=== PATIENT | female | born 1935 | race Caucasian/White ===

== ENCOUNTER 2020-05-19 06:44 | Day surgery (SDC) | payer MEDICARE, BC ==
[~2020-05-19] VITALS: Ht 152.4 cm; Wt 71.8 kg
[~2020-05-19 06:44] MED LIST: AMLODIPINE BESY10 MG PO; ATENOLOL25 MG PO; ATORVASTATIN CA20 MG PO; CENTRAVITES 501 EACH PO; DORZOLAMIDE 2%10 ML OP; HYDROCHLOROTH12.5 MG PO; IRON18 MG PO; POTASSIUM CHLO10 MEQ PO; STOOL SOFTENER100 MG PO; TRAVATAN Z5 ML OPTH
[2020-05-19] MEDS ORDERED: ALLOPURINOL100 MG PO (07:20)
--- NOTE | 2020-05-19 10:40 | NUR ---
05/19/20 1040 Inga Rahman 0964 PT ARRIVED IN PACU AWAKE WITH NO C/O'S. ABD SOFT AND PASSING FLATUS. 0945 DR AT BEDSIDE VISITING WITH PT. ALL QUESTIONS ANSWERED. 1000 SITTING AT BEDSIDE GETTING DRESSED WITH STAND BY ASSIST. 1010 DC INSTRUCTIONS GIVEN. PT VOICED QUESTIONS ABOUT GETTING A NEW PROSTHETIC BRA. APPT SET UP FOR NEXT MONDAY AT 9AM WITH BREAST CANCER SPECIALIST TO GET RE FITTED. 1020 LEFT VIA W/C. DC INSTRUCTIONS GIVEN TO DAUGHTER AND FOLLOW UP APPT ON MAY 26 AT 9AM.
--- NOTE | 2020-05-20 13:07 | OR ---
[facility] [address] [place], [place] [address] Signed DATE OF OPERATION: 05/19/2020 SURGEON: Graham Flores MD PREOPERATIVE DIAGNOSES: 1. Heme-positive stool. 2. Distant history of partial cecectomy. POSTOPERATIVE DIAGNOSES: 1. Extensive diverticulosis of sigmoid and left colon. 2. Mild cecitis. 3. Rectal hemangiomas. 4. Internal hemorrhoidal changes. 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 ANESTHESIA: Intravenous sedation, fentanyl 100 mcg and Versed 6 mg. INDICATION: This 85-year-old white woman is a patient of LIZZIE Nair. She was noted to have heme-positive stool on fecal occult blood testing. She has had no gross blood per rectum. She does have history of partial cecectomy with appendectomy and drainage of retroperitoneal abscess in 2001. She has also undergone a nephrectomy in the past. She has had heme-positive stool noted on fecal occult blood testing, but no sign of gross rectal bleeding or hematemesis. She understands the risks of bleeding, infection, and perforation related to colonoscopy and wished to proceed. FINDINGS: The prep was reasonably good. Complete colonoscopy was undertaken to the cecum without question. There was no sign of neoplasm. She did have some hemangiomas of the rectum, which were nonbleeding and some internal hemorrhoids. Extensive diverticulosis was noted of the sigmoid and left colon. Mild inflammation of the cecum was noted, likely related to insufflation rather than a primary cecitis proper. DESCRIPTION OF PROCEDURE: The patient was brought to the surgical endoscopy suite, placed in lateral decubitus position, given intravenous sedation to the point of slurred speech and nystagmus with Electronically Signed By: GRAHAM FLORES MD 05/20/20 1307 PATIENT NAME: HAKEEM BELTRAN OPERATIVE REPORT DATE OF : 35 REPORT #: [id number] PHYSICIAN: GRAHAM FLORES MD PCP: DUNCAN JONES REPORT IS CONFIDENTIAL AND NOT TO BE RELEASED WITHOUT AUTHORIZATION [facility] [address] [place], [place] [address] Signed full cardiopulmonary monitoring. Digital rectal examination was normal. The Olympus video colonoscope was passed in the rectum and manipulated throughout the colon noting extensive diverticular changes of sigmoid and left colon. The scope was ultimately passed to the cecum. The small submucosal hemorrhages were noted typical of insufflation rather than actual colitis. However, biopsies were obtained anyway. The scope was withdrawn. Examination throughout showed no sign of abnormality until the left colon and sigmoid where numerous diverticula were once again noted. Withdrawal of the rectum showed some submucosal hemangioma type lesions. One was representatively excised including mucosa and submucosa and bleeding controlled with electrocautery. Retroflexed view was undertaken confirming internal hemorrhoids. The scope was removed. The patient was taken to the recovery room in good condition. Findings could account for occult blood per rectum, but none are worrisome or malignant in any way. PLAN: We would recommend fiber supplement such as Citrucel or Metamucil one scoop daily. She will return to the ongoing care of Duncan Jones. MD MARGOT Costa/MODL /[id number] cc: LIZZIE Nair Copies: DUNCAN JONES ~ Electronically Signed By: GRAHAM FLORES MD 05/20/20 1307 PATIENT NAME: HAKEEM BELTRAN OPERATIVE REPORT DATE OF : 35 REPORT #: [id number] PHYSICIAN: GRAHAM FLORES MD PCP: DUNCAN JONES REPORT IS CONFIDENTIAL AND NOT TO BE RELEASED WITHOUT AUTHORIZATION
== END 2020-05-19 10:20 | disposition home or self-care (01) ==
LOC: DS 06:44 → OPS 06:44 → DS 08:00 → OPS 10:20 → DS 13:00
PROVIDERS: ATTEND Surgery
PROC: 0DBP8ZX Excision of Rectum, Via Natural or Artificial Opening Endoscopic, Diagnostic (ICD-10-PCS; 2020-05-19)
PROC: 0DBH8ZX Excision of Cecum, Via Natural or Artificial Opening Endoscopic, Diagnostic (ICD-10-PCS; principal; 2020-05-19 08:00)
DX: K62.1 Rectal polyp (principal); K57.30 Diverticulosis of large intestine without perforation or abscess without bleeding; K52.9 Noninfective gastroenteritis and colitis, unspecified; D18.09 Hemangioma of other sites; I10 Essential (primary) hypertension; K64.8 Other hemorrhoids; Z98.890 Other specified postprocedural states; Z95.0 Presence of cardiac pacemaker
CPT/HCPCS: 88305; 99153; G0500; J2250; J3010; J7121

== ENCOUNTER 2021-05-02 08:17 | Emergency (ER) | payer MEDICARE, BC ==
[~2021-05-02] VITALS: Ht 152.4 cm; Wt 75.8 kg
[~2021-05-02 08:17] MED LIST changes: +ALLOPURINOL100 MG PO
[2021-05-02] MEDS ORDERED: ALPHAGAN P5 M1 OPTH (08:41)
== END 2021-05-02 10:15 | disposition home or self-care (01) ==
LOC: ED 08:17
DX: R31.9 Hematuria, unspecified (principal); N32.9 Bladder disorder, unspecified; Z85.3 Personal history of malignant neoplasm of breast; Z79.899 Other long term (current) drug therapy
CPT/HCPCS: 74176; 80048; 81001; 85025; 99284-25; J7030

== ENCOUNTER 2021-05-07 09:11 | Emergency (ER) | payer MEDICARE, BC ==
[~2021-05-07] VITALS: Ht 152.4 cm; Wt 75.8 kg
[~2021-05-07 09:11] MED LIST changes: +ALPHAGAN P5 M1 OPTH
--- OUTSIDE RECORDS SUMMARY | 2021-05-07 09:18 | XMS ---
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 Denia has no Care Guidelines for this patient. Breana VISIT COUNT (12 MO.) 2 [facility] [place] [facility]. TOTAL 2 NOTE: Visits indicate total known visits. ED/UCC VISIT TRACKING (12 MO.) 05/07/2021 09:[address] [facility] [place] TYPE: Emergency COMPLAINT: - POSS UTI 05/02/2021 08:17 [facility] [place] TYPE: Emergency COMPLAINT: - BLOOD IN URINE DIAGNOSES: - Bladder disorder, unspecified - Personal history of malignant neoplasm of breast - [facility] drug therapy - Hematuria, unspecified INPATIENT VISIT TRACKING (12 MO.) No inpatient visits to display in this time frame [email or web address]
== END 2021-05-07 16:39 | disposition home or self-care (01) ==
LOC: ED 09:11
DX: N32.9 Bladder disorder, unspecified (principal); D64.9 Anemia, unspecified; R31.9 Hematuria, unspecified; Z85.3 Personal history of malignant neoplasm of breast; Z79.899 Other long term (current) drug therapy
CPT/HCPCS: 36430; 51702; 51798; 76770; 80053; 81001; 85025; 85610; 86850; 86900; 86901; 86922; 99284-25; P9016

== ENCOUNTER 2021-05-13 08:45 | Day surgery (SDC) | payer MEDICARE, BC ==
[~2021-05-13] VITALS: Ht 160 cm; Wt 72.7 kg
--- NOTE | 2021-05-13 09:15 | NUR ---
RT COLLECTED RAPID COVID 19 SWAB USING IN HOUSE LAB WITH NO COMPLICATIONS AT THIS TIME.
[2021-05-13] MEDS ORDERED: AMLODIPINE BESYL5 MG PO (11:15)
--- NOTE | 2021-05-13 16:23 | NUR ---
05/13/21 1623 Skylar Orellana 1614 PT ARRIVED TO PACU ON 6L VIA MASK, VSS. PT WAKES AND IS REORIENTED TO PACU. RESP EVEN AND UNLABORED. 1619 O2 REMOVED AND DENIES PAIN AND NAUSEA. PT RESTING IN BED WITH EYES CLOSED.
--- NOTE | 2021-05-13 17:30 | NUR ---
pt arrives to the floor via stretcher, awake and alert. pt has 2L NC , JANSEN IN PLACE WITH PINK COLORED URINE IN BAG. PT DENIES PAIN AT THIS TIME. PT'S DAUGHTER IN ROOM. PT TO ATTEMPT ORAL INTAKE WITH APPLESAUCE.
--- NOTE | 2021-05-13 18:20 | NUR ---
IN ROOM TO CHECK JANSEN BAG; DARK PINK URINE IN JANSEN TUBING. IRRIGATED WITH STERILE WATER; PT REACTED TO IRRIGATION WITH WINCING; SMALL CLOT FLOWED IMMEDIATELY IN TUBING. WILL CONTINUE TO MONITOR. EXTENSIVE EDUCATION ON JANSEN CARE, S/S OF JANSEN BLOCKAGE, URINE COLOR, ETC.
--- NOTE | 2021-05-13 19:25 | NUR ---
f/c flushed with 10cc sterile water, pink red drainage returned. no cloths. patent. instructions on f/c care and what to observe for given to pt and family, stated understanding. cooperative. meet criteria to be dc'd.
--- NOTE | 2021-05-13 20:18 | NUR ---
PT F/C FLUSHED AGAIN, TOLERATED WELL, DRAINAGE LIGHT PINK COLORED. DC INSTRUCTIONS GIVEN WRITTEN AND VERBALLY. F/C CARE EXPLAINED TO PT AND FAMILY MEMBER. STATED UNDERSTANDING.. SL LFA DC'D, TIP INTACT. PT ALERT/ORIENTED
--- NOTE | 2021-05-13 20:28 | NUR ---
DC HOME VIA W/C TO PRIVATE CAR TO HOME WITH ALL BELONGINGS AND DC WRITTEN INSTRUCTIONS
--- NOTE | 2021-05-16 16:23 | EKG ---
[facility] [address] [facility] [place], [place] [address] Signed Atrial-paced rhythm Incomplete right bundle branch block Abnormal ECG No previous ECGs available Confirmed by HELLEN GUZMAN DO ([id number]) on 05/16/2021 4:23:11 PM Electronically Signed By: HELLEN GUZMAN DO 05/16/21 1623 PATIENT NAME: HAKEEM BELTRAN Electrocardiogram DATE OF : 35 PHYSICIAN: HELLEN GUZMAN DO REPORT #: [id number] REPORT IS CONFIDENTIAL AND NOT TO BE RELEASED WITHOUT AUTHORIZATION
--- NOTE | 2021-05-17 10:13 | OR ---
[facility] [address] [place], [place] [address] Signed DATE OF OPERATION: 05/13/2021 SURGEON: Anabel Cook MD PREOPERATIVE DIAGNOSES: 1. Persisting gross hematuria with acute blood loss anemia. 2. History of bladder cancer. 3. Bladder mass seen on recent CT scan of the abdomen and pelvis. POSTOPERATIVE DIAGNOSES: 1. Persisting gross hematuria with acute blood loss anemia. 2. History of bladder cancer. 3. Bladder mass seen on recent CT scan of the abdomen and pelvis. 4. Diffuse bladder tumor recurrence, noted mostly on the dome and posterior naylor of the bladder. NAMES OF PROCEDURES: 1. Diagnostic cystoscopy with blood clot evacuation. 2. Transurethral resection of bladder tumor-large. 3. Insertion of indwelling 20-Bolivian two-way Mak catheter, connected to gravity drainage. ANESTHESIA: General. ESTIMATED BLOOD LOSS: 50 mL. COMPLICATIONS: None. SPECIMENS: 1. Cystic appearing bladder mass located at the dome of the bladder. 2. Multiple papillary bladder masses present mostly on the dome and posterior wall of the bladder. DRAINS: A 20-Bolivian two-way Mak catheter, connected to gravity drainage. 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 Fernandes. Earlier in 2020, she was noted to have blood in her urine and underwent a diagnostic cystoscopy, which revealed a 2.5 cm papillary anterior bladder wall mass. This was resected by Dr. Fernandes. Unfortunately, I do not have the pathology report from that resection. Dr. Fernandes has since retired, and she recently presented to me to establish care with the urologist. Prior to that, she had been experiencing persistent gross hematuria for the past two weeks or so. She had visited the emergency department at least twice and at one point, her hemoglobin made it down to 8.8 and she was transferred 1 unit of packed red blood cells. She has maintained a Mak catheter since that time because she ultimately went into clot retention on May 07, 2021. Her preoperative hemoglobin today is 10.0 and she is otherwise stable. She presents now to undergo cystoscopy with blood clot evacuation and presumed transurethral resection of bladder tumor. OPERATIVE FINDINGS: 1. On cystoscopy, she has one left ureteral orifice that is in the normal anatomic location effluxing clear urine. There is no right ureteral orifice present, which is consistent with her history of nephroureterectomy with cuff excision. 2. Cystoscopy, however, does reveal diffuse involvement of a papillary carpet like in some areas. Bladder mass located all throughout the dome of her bladder and on a very good portion of the posterior wall of the bladder. There are a couple of other small areas on the lateral naylor of the bladder that were also involved. I resected all tumors that were visible to me. During most resections, a good deal of muscularis tissue was also obtained for pathologic analysis. 3. Prior to resection of the bladder tumors, she did have a 4 cm or so very organized blood clot that required transurethral resection into smaller pieces before complete irrigation of the pieces from the patient's bladder. 4. At the end of the procedure, once the areas of tumor resection were cauterized to establish hemostasis, a 20-Bolivian two-way Mak catheter was inserted into the patient's bladder and connected to gravity drainage. DESCRIPTION OF PROCEDURE: After informed consent was obtained, the patient was taken back to the operating room. [facility] table, where general anesthesia was induced. She was then placed in the dorsal lithotomy position and her indwelling Mak catheter was removed. Her genitalia were then prepped and draped in a standard sterile fashion. The patient's urethra was dilated from 20-Bolivian to 30-Bolivian without difficulty. I then inserted the cystoscope using a 26-Bolivian sheath and performed a thorough diagnostic cystoscopy. Please see the above findings. I then switched the visual obturator out for a resectoscope and began to resect the papillary Electronically Signed By: ANABEL COOK MD 05/17/21 1013 PATIENT NAME: CHRISTIN BELTRAN OPERATIVE REPORT DATE OF : 35 REPORT #: [id number] PHYSICIAN: ANABEL COOK MD PCP: DUNCAN CROW REPORT IS CONFIDENTIAL AND NOT TO BE RELEASED WITHOUT AUTHORIZATION [address] [address] Signed tumors present on the posterior wall of the bladder. I took pains to get a proper amount of muscularis tissue with each resection. There was one area in the inferior portion of the posterior wall where a deep resection was made, but there was no evidence of a through and through bladder perforation. I continued resection of the multiple diffuse tumors in the bladder up into the dome of the bladder and close to the anterior wall of the bladder. Total resection time was approximately 2 hours. Once all of the visible bladder tumor was resected and cauterized appropriately with a 24-Bolivian loop, the patient's bladder was irrigated multiple times to be sure all of the tumor was irrigated from her bladder. Of note, there was an unusual appearing bladder mass up on the dome of the bladder that appeared to have papillary tumor present in an inverted fashion. The visible side of the tumor was very smooth. However, when I incised the tumor itself, I could easily see the papillary characteristics of the known bladder tumor. This was sent in a separate specimen for evaluation to be sure this was not a different type of bladder tumor. Once all of the tumor fragments were irrigated from the patient's bladder and cautery had been achieved, the resectoscope was removed. A 20-Bolivian two-way Mak catheter was inserted into the patient's bladder and connected to gravity drainage. I deferred mitomycin therapy today due to the presence of diffuse tumor and the likelihood that mitomycin would be ineffective in making any difference with respect to her prognosis. She will now be transferred to the post anesthesia care unit in stable condition. DISPOSITION: I discussed the details of today's procedure with the patient's daughter and answered all of her questions. I informed her daughter that she has obvious high-grade disease present throughout the majority of her bladder wall. I will be contacting her to discuss the pathology results as soon as they are available to me. Her postoperative hemoglobin is 10.2, so she does qualify for discharge as long as her urine remains clear draining from her Mak catheter. Her diet will be restarted as tolerated and she will be given IV pain control as needed. She will be sent home today with cefdinir 300 mg p.o. b.i.d. for a total of 7 days along with oxycodone 5 mg one tablet p.o. q.6 hours p.r.n. pain, dispense #20 and B and O suppositories as needed for bladder spasms. She has been placed on the schedule to return to clinic on June 03 to undergo a voiding trial and hopefully have her Mak catheter removed. Anabel Cook MD AR/MODL /[id number] Electronically Signed By: ANABEL COOK MD 05/17/21 1013 PATIENT NAME: CHRISTIN BELTRAN OPERATIVE REPORT DATE OF : 35 REPORT #: [id number] PHYSICIAN: ANABEL COOK MD PCP: DUNCAN CROW REPORT IS CONFIDENTIAL AND NOT TO BE RELEASED WITHOUT AUTHORIZATION [facility] [address] [place] [id number] Signed Copies: ~ Electronically Signed By: ANABEL COOK MD 05/17/21 1013 PATIENT NAME: RUBYCHRISTIN OPERATIVE REPORT DATE OF : 35 REPORT #: [id number] PHYSICIAN: ANABEL COOK MD PCP: DUNCAN CROW REPORT IS CONFIDENTIAL AND NOT TO BE RELEASED WITHOUT AUTHORIZATION
--- NOTE | 2021-05-18 10:55 | PATH ---
[facility] [address] [place], [place] [address] Signed SPECIMEN(S): A BLADDER TUMOR SPECIMEN(S): B CYSTIC BLADDER DOME MASS SPECIMEN SOURCE: A. BLADDER TUMOR B. CYSTIC BLADDER DOME MASS CLINICAL HISTORY: Pre: History of bladder CA, kidney CA, history of right nephroureterectomy. Post: TURBT. FINAL PATHOLOGIC DIAGNOSIS: A. Bladder tumor, transurethral resection: - Invasive high-grade papillary urothelial carcinoma. - Tumor extension: Tumor invades lamina propria (subepithelial connective tissue). - Muscularis propria (detrusor muscle): Present and not involved by the carcinoma. - Lymphovascular invasion: Not identified. B. Cystic bladder dome mass, transurethral resection: - Noninvasive high-grade papillary urothelial carcinoma. - Muscularis propria (detrusor muscle): Not identified. - Lymphovascular invasion: Not identified. COMMENT: The carcinoma in both parts A and B demonstrate foci of extracellular mucin. No glandular formation is seen. As part of [facility] Quality Improvement Program, this case was reviewed by another member of our pathology staff. A diagnostic alert was initiated by Dr. Swenson on 05/18/21. NAL:BRP:cml:C1NR MICROSCOPIC EXAMINATION: Histologic sections of all submitted blocks are examined by light microscopy. These findings, together with the gross examination, support the pathologic diagnosis. GROSS DESCRIPTION: Two specimens are received in two containers, labeled "BH." A. The specimen, labeled "BH, A," and designated on the requisition "bladder tumor," is received in formalin and consists of multiple fragments of pink to PATIENT NAME: HAKEEM BELTRAN PATHOLOGY DATE OF : 35 REPORT #: [id number] PHYSICIAN: KEISHA JOHN PCP: DUNCAN CROW REPORT IS CONFIDENTIAL AND NOT TO BE RELEASED WITHOUT AUTHORIZATION [facility] [address] [place], [place] [address] Signed red-brown, friable tissue (4.5 x 4.3 x 0.9 cm in aggregate). The specimen is submitted entirely in cassettes (A1-A3). B. The specimen, labeled "BH, B," and designated on the requisition "cystic bladder dome mass," is received in formalin and consists of the piece of pink to brown-galeas, friable tissue (2.4 x 1.1 x 1.0 cm). The possible resection margin is inked blue. The specimen is serially sectioned to reveal a brown-galeas, soft, friable cut surface. The specimen is submitted entirely in cassette (B1). AC (under the direct supervision of a pathologist) The Gross Description was prepared using a voice recognition system. The report was reviewed for accuracy; however, sound-alike word errors, addition and/or deletions may occur. If there is any question about this report, please contact Client Services. PERFORMING LABORATORY: The technical component was performed by [facility], [address] [place] [id number] ([employer] Animal Damage Control Agent: Emily Lopez MD; CLIA# [id number]). Professional interpretation was performed by [facility], [facility], [address] [address] (CLIA# [id number]). Diagnostician: Jeannette Swenson MD Pathologist Electronically Signed 05/18/2021 Copies: ~ PATIENT NAME: HAKEEM BELTRAN PATHOLOGY DATE OF : 35 REPORT #: [id number] PHYSICIAN: KEISHA JOHN PCP: DUNCAN CROW REPORT IS CONFIDENTIAL AND NOT TO BE RELEASED WITHOUT AUTHORIZATION
== END 2021-05-13 20:34 | disposition home or self-care (01) ==
LOC: DS 08:45 → MS 17:30 → DS 20:34
PROVIDERS: ATTEND Urology
PROC: 0TBB8ZX Excision of Bladder, Via Natural or Artificial Opening Endoscopic, Diagnostic (ICD-10-PCS; principal; 2021-05-13 09:30)
DX: R31.0 Gross hematuria (principal); C67.1 Malignant neoplasm of dome of bladder; C67.4 Malignant neoplasm of posterior wall of bladder; C67.3 Malignant neoplasm of anterior wall of bladder; D62 Acute posthemorrhagic anemia; I13.0 Hypertensive heart and chronic kidney disease with heart failure and stage 1 through stage 4 chronic kidney disease, or unspecified chronic kidney disease; N18.4 Chronic kidney disease, stage 4 (severe); I50.9 Heart failure, unspecified; Z85.528 Personal history of other malignant neoplasm of kidney; Z90.5 Acquired absence of kidney; Z20.822 Contact with and (suspected) exposure to COVID-19
CPT/HCPCS: 00912; 71046; 80053; 85025; 86850; 86900; 86901; 86922; 93005; 93010; C9803; J0690; J1100; J2001; J2405; J2704; J3010; J7121; U0003

== ENCOUNTER 2022-06-06 05:40 | Day surgery (SDC) | payer MEDICARE, BC ==
[~2022-06-06] VITALS: Ht 160 cm; Wt 79.5 kg
[~2022-06-06 05:40] MED LIST changes: +ALA-CORT28.4 GM TOP; +AMLODIPINE BESYL5 MG PO; +LATANOPROST 0.7.5 ML OP
--- NOTE | 2022-06-06 09:27 | NUR ---
06/06/22926 Inga Rahman 0908 PT ARRIVED IN PACU AWAKE WITH NO C/O'S. JANSEN CLAMPED AND TAPED TO ABD AND RECTAL TUBE IN PLACE FROM SURGERY. LAYING SUPINE. 919 REPOSITIONED TO L SIDE PER DR ORDERS. NO C/O'S.
--- NOTE | 2022-06-06 09:55 | NUR ---
PT BACK TO DS ROOM FROM PACU LAYING RT LAT POSITION, PT AWAKE ALERT AND TALKING. REPORTS MILD DISCOMFORT TO BLADDER AREA BUT TOLERABLE. DENIES NAUSEA. WARM BLANKETS AND TITA HUGGER PLACED ON PT.
--- NOTE | 2022-06-06 09:59 | NUR ---
PT HAS RECTAL TUBE IN PLACE DRAINING AND PATENT.
--- NOTE | 2022-06-06 10:03 | NUR ---
1000 PT TURNED ONTO STOMACHE SHE WILL BE IN PRONE POSITION FOR 15 MIN.
--- NOTE | 2022-06-06 10:54 | NUR ---
1020 RECTAL TUBE REMOVED PT TOLERATED WELL. JANSEN CATH REMOVED. 50ML OF FLUID OUT OF JANSEN CATH. PT AMBULALATED TO BATHROOM, RUNNY BOWEL MOVEMENT, SHE WAS NOT ABLE TO VOID. PT CLEANED UP, GOWN AND BED COMPLETED CHANGED. TUCKED HER BACK INTO BED WARM BLANKET PLACED ON PT.
--- NOTE | 2022-06-06 10:57 | NUR ---
1050 PT TAKING SIPS OF WATER AND EATING JELLO TOLERATES WELL.
--- NOTE | 2022-06-06 10:58 | NUR ---
PT DENIES PAIN AND NAUSEA.
--- NOTE | 2022-06-06 10:58 | NUR ---
DEPENDS BRIEFS PLACED ON PT SHE REPORTS BEING MORE COMFORTABLE IN THEM
--- NOTE | 2022-06-06 11:29 | NUR ---
PT AMBULATED TO BATHROOM SHE WAS ABLE TO VOID 100ML OF CLEAR YELLOW URINE LIGHT TINGED WITH BLOOD. PT DENIES PAIN OR NAUSEA. REPORTS READINESS TO GO HOME.
--- NOTE | 2022-06-06 11:44 | NUR ---
DISCHARGE INSTRUCTIONS GIVEN TO PT SHE VOICED UNDERSTANDING. PT DENIES PAIN OR NAUSEA.
--- NOTE | 2022-06-06 12:28 | NUR ---
SENT SIGNED DISCHARGE PAPER HOME WITH PT.
--- NOTE | 2022-06-06 14:28 | NUR ---
PT ALERT, ORIENTED AND SUPPORTED BY HER DAUGHTER. PT SEEMS AT EASE, CONFIDENT OF DR AND STAFF AND CARE SHE IS RECEIVING. PT REQUESTED PRAYER AND WILL FOLLOW
--- NOTE | 2022-06-07 10:46 | NUR ---
LE 1045 CALL BACK COMPLETE. PATIENT VERY PLEASED WITH CARE. STATES PAIN IS UNDER CONTROL AND HAVING NO PROBLEM VOIDING. NO QUESTIONS AT THIS TIME. NO FUTHER NEEDS.
--- NOTE | 2022-06-07 12:28 | OR ---
[facility] [address] [place], [place] [address] Signed DATE OF OPERATION: 06/06/2022 SURGEON: Anabel Cook MD PREOPERATIVE DIAGNOSES: 1. Possible tumor recurrence, a 5 mm area of erythema on the inferior aspect of the posterior bladder wall. 2. 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 POSTOPERATIVE DIAGNOSES: 1. Possible tumor recurrence, a 5 mm area of erythema on the inferior aspect of the posterior bladder wall. 2. 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 NAMES OF PROCEDURES: 1. Diagnostic cystoscopy. 2. Transurethral resection of bladder tumor-small. 3. Intravesical instillation of mitomycin chemotherapy. ANESTHESIA: General. ESTIMATED BLOOD LOSS: Minimal. COMPLICATIONS: None. SPECIMENS: Resected area of tumor recurrence placed in a specimen cup and sent to pathology for evaluation. DRAINS: A 20-Jordanian two-way Mak catheter, capped and secured to the patient's abdomen. INDICATIONS FOR PROCEDURE: Ms. Beltran is a very pleasant 87-year-old female, who is well-known to me. She has a history of high-grade T1 urothelial carcinoma of the bladder and is currently undergoing cystoscopy q.3 months to monitor her high-grade disease. Her most recent cystoscopy revealed a very tiny potential area of tumor recurrence. It measured around 5 mm and it Electronically Signed By: ANABEL COOK MD 06/07/22 1228 PATIENT NAME: HAKEEM BELTRAN OPERATIVE REPORT DATE OF : 35 REPORT #: [id number] PHYSICIAN: ANABEL COOK MD PCP: DUNCAN CROW REPORT IS CONFIDENTIAL AND NOT TO BE RELEASED WITHOUT AUTHORIZATION [facility] [address] [facility] [place], [place] [address] Signed was slightly raised and velvety in appearance located in the inferior aspect of the posterior wall of the bladder. I notified the patient at that time that this was suspicious for recurrence, so she presents today to undergo excision of this potential area of tumor recurrence. She will also undergo intravesical mitomycin chemotherapy today. OPERATIVE FINDINGS: 1. On cystoscopy, there is no evidence of any obvious overt bladder tumors. There is grade 3 bladder wall trabeculation noted. Her left ureteral orifice is in its normal anatomic location effluxing clear urine. There is a 5 mm well-circumscribed area of fluffy erythema present on the posterior bladder wall, on the inferior portion of the wall close to the trigone. 2. The 5 mm potential area of tumor recurrence was resected transurethrally without difficulty. The area of resection and beyond was cauterized using bipolar cautery with a 24-Jordanian loop. The resected tumor was extracted from the patient's bladder using a Lauro syringe. 3. After the area of tumor resection was cauterized, intravesical mitomycin was instilled using a 20-Jordanian two-way Mak catheter. This will remain indwelling within the bladder for the next 80 minutes. 4. A total of 40 mg of mitomycin in 20 mL of sterile water was instilled into the patient's bladder. DESCRIPTION OF PROCEDURE: After informed consent was obtained, the patient was taken back to the operating room. She was transferred from the [facility] to the operating room table, where general anesthesia was induced. She was placed in the dorsal lithotomy position and her genitalia were prepped and draped in a standard sterile fashion. Using a 30-degree lens on a 22.5-Jordanian introducer, rigid cystoscope was inserted through the urethra and into her bladder under direct visualization. Panendoscopic views of the bladder have then obtained. Please see above findings. I then removed the cystoscope and then advanced a 26-Jordanian sheath using a visual obturator. The visual obturator was then switched out for the resectoscope and a 24-Jordanian loop. I resected the potential area of tumor recurrence without incident. A Lauro syringe was used to irrigate the resected tumor fragments from the bladder. These were then placed in a specimen cup to be sent to pathology. I cauterized the biopsy area. I also cauterized some superficial areas of erythema around the resected tumor. Once I was satisfied that hemostasis had been achieved, the resectoscope was then removed along with the 26-Jordanian sheath. A 20-Jordanian two-way Mak catheter was inserted into the patient's bladder and the balloon was filled with 10 mL of water. I mainly irrigated the catheter using a catheter tipped Lauro syringe. I then instilled a total of 40 mg of mitomycin and 20 mL of sterile water into the patient's bladder via the 20-Jordanian two-way catheter. The two-way catheter was then capped and secured to the patient's abdomen. The procedure was then Electronically Signed By: ANABEL COOK MD 06/07/22 1228 PATIENT NAME: HAKEEM BELTRAN OPERATIVE REPORT DATE OF : 35 REPORT #: [id number] PHYSICIAN: ANABEL COOK MD PCP: DUNCAN CROW REPORT IS CONFIDENTIAL AND NOT TO BE RELEASED WITHOUT AUTHORIZATION [address] [address] Signed terminated. The patient tolerated the procedure well without complication. She will now be transferred to the postanesthesia care unit in stable condition. DISPOSITION: I discussed the details of today's procedure with the patient's daughter and answered all of her questions. Overall, the resection went quite well and all suspicious areas of the patient's bladder were addressed today. She will be going home with oxycodone 5 mg one-half tablet q.4-6 hours p.r.n. pain, dispense #10, along with cefdinir 300 mg one tablet p.o. daily for a total of 7 days. She will continue to the PACU with her intravesical mitomycin which will remain in the patient's bladder for the next 80 minutes. The mitomycin will be drained from her bladder prior to discharge. The patient must void on her own prior to discharge today. She was scheduled return to clinic in six weeks for postop evaluation and to discuss her pathology results. MD VIOLET De Los Santos/JOSE /[id number] Copies: ~ Electronically Signed By: ANABEL COOK MD 06/07/22 1228 PATIENT NAME: RUBYHAKEEM SAJAN OPERATIVE REPORT DATE OF : 35 REPORT #: [id number] PHYSICIAN: ANABEL COOK MD PCP: DUNCAN CROW REPORT IS CONFIDENTIAL AND NOT TO BE RELEASED WITHOUT AUTHORIZATION
--- NOTE | 2022-06-09 15:00 | PATH ---
[facility] [address] [place], [place] [address] Signed SPECIMEN(S): A BLADDER LESION BIOPSY SPECIMEN SOURCE: A. BLADDER LESION BIOPSY CLINICAL HISTORY: Recurrent malignant neoplasm of bladder. FINAL PATHOLOGIC DIAGNOSIS: Bladder lesion, biopsy: - Fragments of bladder wall with focal papillomatous changes with focal mixed inflammation and urothelial erosion. - Negative for high grade papillary urothelial carcinoma. - Negative for occult invasive malignancy on cytokeratin AE1/AE3 stained sections. JVR:llc:[facility]:C2NR MICROSCOPIC EXAMINATION: Immunostains are performed with appropriate controls on block A1 and show the following: - CK AE1/AE3: Negative for occult carcinoma. - CK5: Positive in area of concern. - CK20: Negative in area of concern. JVR:llc:[facility] Histologic sections of all submitted blocks are examined by light microscopy. These findings, together with the gross examination, support the pathologic diagnosis. GROSS DESCRIPTION: The specimen, labeled and designated "Jose bladder lesion," is received in formalin and consists of four fragments of galeas soft tissue (0.3 to 0.5 cm in greatest dimension). The specimen is submitted entirely in cassette (A1). AC (under the direct supervision of a pathologist) The Gross Description was prepared using a voice recognition system. The report was reviewed for accuracy; however, sound-alike word errors, addition and/or deletions may occur. If there is any question about this report, please contact Client Services. ADDITIONAL NOTES: Immunohistochemical and/or in situ hybridization studies were performed on this PATIENT NAME: HAKEEM BELTRAN PATHOLOGY DATE OF : 35 REPORT #: [id number] PHYSICIAN: KEISHA PATHOLOGY PCP: DUNCAN CROW REPORT IS CONFIDENTIAL AND NOT TO BE RELEASED WITHOUT AUTHORIZATION [facility] [address] [place] [place] [address] Signed case with the appropriate positive controls that react as expected. This test was developed, and its performance characteristics determined by [facility]. It has not been cleared or approved by the U.S. Food and Drug Administration. The FDA has determined that such clearance or approval is not necessary. This test is used for clinical purposes. It should not be regarded as investigational or for research. [facility] is certified under the Clinical Laboratory Improvement Amendments of 1988 (CLIA) as qualified to perform high complexity clinical laboratory testing. This assay has not been validated for specimens that have been decalcified. PERFORMING LABORATORY: The technical component was performed by [facility], [address] [place] [id number] (CLIA# [id number]). Professional interpretation was performed by [facility] [address] [address] (CLIA#: [id number]). Diagnostician: Tom Hodgson MD Pathologist Electronically Signed 06/09/2022 Copies: ~ PATIENT NAME: HAKEEM BELTRAN PATHOLOGY DATE OF : 35 REPORT #: [id number] PHYSICIAN: KEISHA JOHN PCP: DUNCAN CROW REPORT IS CONFIDENTIAL AND NOT TO BE RELEASED WITHOUT AUTHORIZATION
== END 2022-06-06 11:45 | disposition home or self-care (01) ==
LOC: DS 05:40
PROVIDERS: ATTEND Urology
PROC: 0TBB8ZZ Excision of Bladder, Via Natural or Artificial Opening Endoscopic (ICD-10-PCS; principal; 2022-06-06 07:30)
PROC: 3E0M705 Introduction of Other Antineoplastic into Peritoneal Cavity, Via Natural or Artificial Opening (ICD-10-PCS; 2022-06-06 07:30)
DX: D41.4 Neoplasm of uncertain behavior of bladder (principal); N30.90 Cystitis, unspecified without hematuria; N32.89 Other specified disorders of bladder; I13.0 Hypertensive heart and chronic kidney disease with heart failure and stage 1 through stage 4 chronic kidney disease, or unspecified chronic kidney disease; N18.9 Chronic kidney disease, unspecified; I50.9 Heart failure, unspecified; Z79.899 Other long term (current) drug therapy
CPT/HCPCS: 00912; 36415; 80048; 85025; 88305; 88341; 88342; J0690; J1100; J1885; J2250; J2405; J2704; J2765; J3010; J7121; J9280

== ENCOUNTER 2022-08-28 05:59 | Emergency (ER) | payer MEDICARE, BC ==
[~2022-08-28] VITALS: Ht 160 cm; Wt 79.4 kg
[~2022-08-28 05:59] MED LIST changes: +BACLOFEN10 MG PO; +TRAMADOL HCL50 MG PO
--- OUTSIDE RECORDS SUMMARY | 2022-08-28 06:02 | XMS ---
PreManage Notification: HAKEEM BELTRAN Security Lug Loader Events No recent Security Events currently on file CRITERIA MET - [facility] - 2 Visits in 30 Days CARE PROVIDERS DUNCAN CROW Physician Division Human Resources Manager 05/10/2021-Current PHONE: Unknown Denia has no Care Guidelines for this patient. Breana VISIT COUNT (12 MO.) 2 [facility] TOTAL 2 NOTE: Visits indicate total known visits. 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
[2022-08-28] MEDS ORDERED: MEGESTROL ACETA40 MG PO (10:05)
[2022-08-28 10:07] VITALS: BP 143/60
== END 2022-08-28 10:07 | disposition home or self-care (01) ==
LOC: ED 05:59
DX: N95.0 Postmenopausal bleeding (principal); N85.2 Hypertrophy of uterus; Z79.899 Other long term (current) drug therapy
CPT/HCPCS: 36415; 76830; 76856; 80053; 81001; 85025; 85610; 85730

== ENCOUNTER 2022-09-10 10:46 | Emergency (ER) | payer MEDICARE, BC ==
[~2022-09-10] VITALS: Ht 160 cm; Wt 77.0 kg
[~2022-09-10 10:46] MED LIST changes: +MEGESTROL ACETA40 MG PO
--- OUTSIDE RECORDS SUMMARY | 2022-09-10 10:49 | XMS ---
PreManage Notification: HAKEEM BELTRAN Security Domestic Housekeeper Events No recent Security Events currently on file CRITERIA MET - [facility]UNC[facility] Physician Transitional Care Nurse 05/10/2021-Current PHONE: Unknown Denia has no Care Guidelines for this patient. Breana VISIT COUNT (12 MO.) 3 [facility] TOTAL 3 NOTE: Visits indicate total known visits. ED/UCC VISIT TRACKING (12 MO.) 09/10/2022 10:47 [facility] [place] TYPE: Emergency COMPLAINT: - WEAKNESS 08/28/2022 06:00 [facility] [place] TYPE: Emergency COMPLAINT: - BLOOD IN URINE DIAGNOSES: - Hematuria, unspecified - Hypertrophy of uterus - Other director long term care (current) drug therapy - Postmenopausal bleeding 08/15/2022 10:[address] [facility] [place] TYPE: Emergency COMPLAINT: - L HIP PAIN DIAGNOSES: - Other fdc (current) drug therapy - Pain in left hip - Unilateral primary osteoarthritis, left hip INPATIENT VISIT TRACKING (12 MO.) No inpatient visits to display in this time frame [email or web address]
[2022-09-10 18:50] VITALS: BP 161/65
--- NOTE | 2022-09-10 22:14 | EKG ---
[facility] [address] [facility] [place] [address] Signed Normal sinus rhythm Incomplete right bundle branch block Borderline ECG When compared with ECG of 13-MAY-2021 08:57, Sinus rhythm has replaced Electronic atrial pacemaker Confirmed by Marcin Ray MD () on 09/10/2022 10:14:42 PM Electronically Signed By: MARCIN RAY MD 09/10/22 2214 PATIENT NAME: RUBYHAKEEM SAJAN Electrocardiogram DATE OF : 35 PHYSICIAN: MARCIN RAY MD REPORT #: [id number] REPORT IS CONFIDENTIAL AND NOT TO BE RELEASED WITHOUT AUTHORIZATION
== END 2022-09-10 18:50 | disposition home or self-care (01) ==
LOC: ED 10:46
DX: R53.1 Weakness (principal); D64.9 Anemia, unspecified; C67.9 Malignant neoplasm of bladder, unspecified; C50.919 Malignant neoplasm of unspecified site of unspecified female breast; C79.9 Secondary malignant neoplasm of unspecified site; Z79.899 Other long term (current) drug therapy
CPT/HCPCS: 36415; 36430; 80053; 81001; 83735; 85025; 86850; 86900; 86901; 86922; 93005; 93010; 96365; 96366; 96375; 99285-25; J1940; J3475; P9016